=== PATIENT | male | born 1985 | race Caucasian/White ===

== ENCOUNTER 2017-06-16 07:16 | Emergency (ER) | payer BC, OTHER ==
[~2017-06-16] VITALS: Ht 182.9 cm; Wt 123.6 kg
[~2017-06-16 07:16] MED LIST: AMPH20CA3 PO
[2017-06-16 07:24] VITALS: TEMP 36.9; Ht 182.9 cm; Wt 123.6 kg
[2017-06-16] MEDS ORDERED: METOCLOPRAMIDE HCL INJ 5 MG/ML 2 ML VIAL IV STA (07:47)
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
[2017-06-16] MEDS ORDERED: SODIUM CHLORIDE 0.9% 1000ML 1,000 ML IV SCH (08:00)
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
[2017-06-16] MEDS ORDERED: KETOROLAC TROMETHAMINE 30 MG/ML VIAL IV STA (08:35)
[2017-06-16 09:22] LABS: INFLUENZA B ANTIGEN Neg for Influ B (NEG)
[2017-06-16 10:12] VITALS: BP 135/81; PULSE 81; O2SAT 98
== END 2017-06-16 10:12 | disposition home or self-care (01) ==
LOC: EDBD 07:16 → C.EDA 07:16
DX: J01.20 Acute ethmoidal sinusitis, unspecified (principal); Z87.442 Personal history of urinary calculi; Z80.9 Family history of malignant neoplasm, unspecified; Z82.49 Family history of ischemic heart disease and other diseases of the circulatory system; Z84.1 Family history of disorders of kidney and ureter